=== PATIENT | male | born 1955 ===

== ENCOUNTER 2020-06-10 12:33 | Emergency (ER) | payer OTHER ==
[~2020-06-10] VITALS: Ht 157.4 cm; Wt 50.8 kg
[2020-06-10] MEDS ORDERED: IBUPROFEN600 MG PO (14:52)
== END 2020-06-10 15:01 | disposition home or self-care (01) ==
LOC: ED 12:33
DX: S50.11XA Contusion of right forearm, initial encounter (principal); W55.12XA Struck by horse, initial encounter; Y93.89 Activity, other specified; Y92.89 Other specified places as the place of occurrence of the external cause; Y99.8 Other external cause status

== ENCOUNTER → 2021-01-12 | Outpatient (CLI) | payer OTHER ==
[~2021-01-12] MED LIST: IBUPROFEN600 MG PO
== END | disposition home or self-care (01) ==
LOC: RAD 15:12
PROVIDERS: ATTEND Preventive Medicine Occupational Medicine
DX: N43.3 Hydrocele, unspecified (principal); N50.3 Cyst of epididymis; N50.89 Other specified disorders of the male genital organs

== ENCOUNTER 2022-11-15 17:37 | Emergency (ER) | payer OTHER ==
[~2022-11-15] VITALS: Ht 157.4 cm; Wt 56.7 kg
[2022-11-15] MEDS ORDERED: METHOCARBAMOL500 M1 PO (20:12)
== END 2022-11-15 22:42 | disposition home or self-care (01) ==
LOC: ED 17:37
DX: S20.212A Contusion of left front wall of thorax, initial encounter (principal); S00.83XA Contusion of other part of head, initial encounter; M54.2 Cervicalgia; Z88.0 Allergy status to penicillin; W55.12XA Struck by horse, initial encounter; Y93.89 Activity, other specified; Y92.89 Other specified places as the place of occurrence of the external cause; Y99.0 Civilian activity done for income or pay

== ENCOUNTER 2024-04-11 21:40 | Emergency (ER) | payer OTHER ==
[~2024-04-11] VITALS: Ht 157.4 cm; Wt 56.7 kg
[~2024-04-11 21:40] MED LIST changes: +METHOCARBAMOL500 M1 PO
[2024-04-11] MEDS ORDERED: LEVOTHYROXINE25 MCG PO (22:03)
[2024-04-11] MEDS ORDERED: TRAZODONE50 MG PO (22:04)
[2024-04-11] MEDS ORDERED: ATORVASTATIN CA10 M1 PO (22:04)
[2024-04-11] MEDS ORDERED: ACETAMINOPHEN 325 MG TAB PO ONE (22:45)
== END 2024-04-12 00:22 | disposition home or self-care (01) ==
LOC: ED 21:40
DX: S09.8XXA Other specified injuries of head, initial encounter (principal); Z88.0 Allergy status to penicillin; V09.9XXA Pedestrian injured in unspecified transport accident, initial encounter; Y93.89 Activity, other specified; Y92.89 Other specified places as the place of occurrence of the external cause; Y99.8 Other external cause status